=== PATIENT | female | born 1960 | race Hispanic/Latino ===

== ENCOUNTER 2017-08-22 17:45 | Emergency (ER) | payer SELFPAY ==
[2017-08-22 17:58] VITALS: BMI 17.9
[2017-08-22 18:04] VITALS: BP 132/72; PULSE 76; RESP 18; TEMP 97.5; O2SAT 98
== END 2017-08-22 17:58 | disposition left against medical advice (07) ==
LOC: C.ER 17:45
DX: Z02.89 Encounter for other administrative examinations (principal); F19.10 Other psychoactive substance abuse, uncomplicated

== ENCOUNTER 2017-10-17 22:27 | Emergency (ER) | payer MEDICAID ==
[2017-10-17 22:27] VITALS: BMI 17.9
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
[2017-10-18] MEDS ORDERED: Sodium Chloride 0.9% 1,000 ML IV ONE (01:08)
--- NOTE | 2017-10-18 02:52 | CT ---
EXAM: CT Head Without Intravenous Contrast EXAM DATE/TIME: 10/17/2017 11:43 PM CLINICAL HISTORY: 57 years old, female; Pain; Headache; Patient HX: 8-27-16; Additional info: Trauma TECHNIQUE: Axial computed tomography images of the head/brain without intravenous contrast. All CT scans at this facility use one or more dose reduction techniques, viz.: automated exposure control; ma/kV adjustment per patient size (including targeted exams where dose is matched to indication; i.e. head); or iterative reconstruction technique. Coronal and sagittal reformatted images were created and reviewed. COMPARISON: Prior head CT of 2016-04-23 FINDINGS: BRAIN: Focal areas of low density in the basal ganglia bilaterally, most compatible with bilateral old/chronic lacunar infarcts. Moderate, diffuse cortical atrophy and ventriculomegaly, which appear somewhat advanced for age. Recommend clinical correlation. No significant acute abnormality identified. No acute hemorrhage seen within the brain. No acute extra-axial fluid collections visualized. No evidence of significant mass effect within the brain. VENTRICLES: See above. BONES/JOINTS: Bilateral nasal bone fractures, which are most likely chronic. There is no associated soft tissue swelling. Remaining visualized bony structures appear intact. No evidence of skull fractures. SOFT TISSUES: Marked soft tissue swelling in the right posterior scalp. Small focus of air in the right posterior scalp, most likely due to a scalp laceration. Multiple radiodensities seen at the skin surface in this area, suspicious for multiple superficially-located scalp foreign bodies. SINUSES: Visualized paranasal sinuses appear clear. MASTOID AIR CELLS: Mastoid air cells appear clear. IMPRESSION: - No evidence of acute intracranial injury. - Marked soft tissue swelling in the right posterior scalp, with suspected multiple superficial foreign bodies in the scalp. - Bilateral nasal bone fractures, which are most likely chronic. Recommend clinical correlation. - See above for remaining findings.
--- NOTE | 2017-10-18 03:01 | CT ---
EXAM: CT Cervical Spine Without Intravenous Contrast EXAM DATE/TIME: 10/17/2017 11:45 PM CLINICAL HISTORY: 57 years old, female; Pain; Neck pain; Additional info: Trauma TECHNIQUE: Axial computed tomography images of the cervical spine without intravenous contrast. All CT scans at this facility use one or more dose reduction techniques, viz.: automated exposure control; ma/kV adjustment per patient size (including targeted exams where dose is matched to indication; i.e. head); or iterative reconstruction technique. Coronal and sagittal reformatted images were created and reviewed. COMPARISON: No relevant prior studies available. FINDINGS: VERTEBRAE: Multilevel facet joint degenerative changes, marked in degree on the right. No acute cervical spine fractures visualized. No significant vertebral subluxation seen on the sagittal reformatted images. No evidence of acute facet dislocation. DISCS/SPINAL CANAL/NEURAL FORAMINA: Marked, multilevel degenerative disc disease. SOFT TISSUES: No acute abnormality of the visualized soft tissues is seen. TRACHEA: Small, rounded focus of air seen in the right superior mediastinum, abutting the trachea, most likely representing a right paratracheal air cyst, an incidental finding. LUNG APICES: Mild emphysematous changes. IMPRESSION: - No acute cervical spine fractures identified. - See above for remaining findings.
[2017-10-18 04:46] VITALS: RESP 18
[2017-10-18] MEDS ORDERED: Lidocaine 1% Inj (20ml) ONE (05:34)
[2017-10-18] MEDS ORDERED: Bacitracin 500 Units/gm Oint Foilpak UD TOP ONE (06:09)
[2017-10-18] MEDS ORDERED: Bacitracin 500 Units/gm Oint Foilpak UD ONE (06:14)
[2017-10-18 06:36] VITALS: BP 98/56; PULSE 102; TEMP 98.2; O2SAT 98
== END 2017-10-18 06:54 | disposition home or self-care (01) ==
LOC: C.ER 22:27
DX: S01.01XA Laceration without foreign body of scalp, initial encounter (principal); Y08.89XA Assault by other specified means, initial encounter; Y92.89 Other specified places as the place of occurrence of the external cause; F10.10 Alcohol abuse, uncomplicated; Y90.9 Presence of alcohol in blood, level not specified
CPT/HCPCS: 12032; 70450; 72125; 96360; 99285; J7040

== ENCOUNTER 2018-02-20 05:09 | Emergency (ER) | payer MEDICAID ==
[2018-02-20 05:09] VITALS: BMI 17.9
[2018-02-20 05:31] VITALS: TEMP 97.5
--- NOTE | 2018-02-20 05:40 | C.PDOC ---
History Of Present Illness patient presents with 3-4 days of chest discomfort. Still drinks and smokes daily. Speaking in complete sentences. Last drink earlier today. Time Seen by Provider: 02/20/18 05:40 Chief Complaint (Nursing): Chest Pain History Per: Patient History/Exam Limitations: no limitations Onset/Duration Of Symptoms: Days Current Symptoms Are (Timing): Still Present Context: Other Severity: Moderate Pain Scale Rating Of: 4 Quality: Dull, Aching Associated Symptoms: denies: Nausea, Dyspnea Modifying Factors: None Exacerbating Factors: None Alleviating Factors: None Recent travel outside of the [place]: No Additional History Per: Patient Past Medical History Reviewed: Historical Data, Nursing Documentation, Vital Signs Vital Signs: Last Vital Signs Temp 97.5 F L 02/20/18 05:19 Pulse 54 L 02/20/18 06:00 Resp 12 02/20/18 06:00 BP 124/84 02/20/18 06:00 Pulse Ox 95 02/20/18 06:00 - Medical History PMH: Asthma, COPD, Diabetes, HTN, Hypercholesterolemia Denies: Chronic Kidney Disease - [facility] Procedures TETANUS TOXOID ADMINIST (09/09/13) Family History: States: No Known Family Hx - Social History Hx Tobacco Use: Yes Hx Alcohol Use: Yes Hx Substance Use: No - Immunization History Hx Tetanus Toxoid Vaccination: No Hx Influenza Vaccination: No Hx Pneumococcal Vaccination: No Review Of Systems Constitutional: Negative for: Fever, Chills ENT: Negative for: Throat Pain Cardiovascular: Positive for: Chest Pain Respiratory: Negative for: Shortness of Breath Gastrointestinal: Negative for: Nausea, Vomiting, Abdominal Pain Genitourinary: Negative for: Dysuria Musculoskeletal: Negative for: Back Pain Skin: Negative for: Rash Neurological: Negative for: Weakness Psych: Negative for: Anxiety Physical Exam - Physical Exam Appears: Non-toxic Skin: Warm, Dry Head: Normacephalic Eye(s): bilateral: Normal Inspection Oral Mucosa: Moist Neck: Supple Chest: Symmetrical Cardiovascular: Rhythm Regular Respiratory: No Rales, No Rhonchi, No Wheezing Gastrointestinal/Abdominal: Soft, No Tenderness, No Distention Back: Normal Inspection Extremity: Normal ROM Extremity: Bilateral: Atraumatic Neurological/Psych: Oriented x3 Gait: Steady ED Course And Treatment - Laboratory Results Result Diagrams: 02/20/18 06:02 02/20/18 06:02 ECG: Interpreted By Me, Viewed By Me ECG Rhythm: Sinus Rhythm (71), Nonspecific Changes O2 Sat by Pulse Oximetry: 96 Pulse Ox Interpretation: Normal - Radiology CXR: Interpreted by Me, Viewed By Me CXR Interpretation: Yes: COPD. No: Infiltrates, Fracture, Pnemothorax Disposition Counseled Patient/Family Regarding: Studies Performed, Diagnosis - Disposition Disposition Time: 05:40 Condition: FAIR Forms: [employer] (Latvian) - Clinical Impression Clinical Impression: Chest pain Physician Patient Turnover Patient Signed Over To: Joseph Parish Handoff Comments: pending labs and admission
[2018-02-20] MEDS ORDERED: Aspirin 325 mg EC Tablets PO STA (05:42)
[2018-02-20 06:06] LABS: BASO % 0.6 % (0.0-2.0); EOS % 0.9 % (0.0-4.0); LYMPH # 1.4 K/uL (1.0-4.3); LYMPH % 48.9 % (20.0-40.0); MEAN CELL VOLUME 96.2 fL (81.0-99.0); MEAN CORPUSCULAR HEMOGLOBIN 32.3 pg (27.0-31.0); MEAN CORPUSCULAR HGB CONC 33.5 g/dL (33.0-37.0); MEAN PLATELET VOLUME 8.7 fL (7.2-11.7); MONO # 0.4 K/uL (0.0-0.8); NEUT % 36.6 % (50.0-75.0); NRBC % 0.2 % (0.0-2.0); RBC 3.72 Mil/uL (3.80-5.20); RED CELL DISTRIBUTION WIDTH 16.7 % (11.5-14.5); WHITE BLOOD COUNT 2.8 K/uL (4.8-10.8)
[2018-02-20 06:13] LABS: INR 1.3
[2018-02-20 06:20] LABS: ALB/GLOB RATIO 1.1 (1.0-2.1); ALBUMIN 3.9 g/dL (3.5-5.0); ALT/SGPT 35 U/L (9-52); AST/SGOT 94 U/L (14-36); BLOOD UREA NITROGEN 8 mg/dL (7-17); GFR AFRICAN-AMERICAN > 60; GFR NON-AFRICAN AMERICAN > 60; LIPASE 79 U/L (23-300)
[2018-02-20 06:27] LABS: B-TYPE NATRIURETIC PEPTIDE 54.8 pg/mL (0-900)
[2018-02-20 07:21] VITALS: BP 107/67; RESP 16; O2SAT 93
[2018-02-20] MEDS ORDERED: Potassium Chloride 20 mEq ER Tab PO STA (09:32)
[2018-02-20] MEDS ORDERED: Azithromycin 500 MG in Sodium Chloride 0.9% 250 ML IVPB SCH (10:00)
--- NOTE | 2018-02-20 10:50 | RAD ---
PROCEDURE: CHEST RADIOGRAPH, 1 VIEW HISTORY: chest pain COMPARISON: 08/03/2016 FINDINGS: LUNGS: Clear. PLEURA: No pneumothorax or pleural fluid seen. CARDIOVASCULAR: No radiographic findings to suggest acute or significant cardiovascular disease. OSSEOUS STRUCTURES: No significant abnormalities. Old healed posterior lateral left 8th rib fracture. VISUALIZED UPPER ABDOMEN: Normal. OTHER FINDINGS: None. IMPRESSION: No active disease. No acute/significant interval changes. No significant interval change compared to the prior examination(s). Concordant results with the preliminary interpretation rendered by the emergency department physician procedure.
[2018-02-20] MEDS ORDERED: Albuterol-Ipratrop 3 mg / 0.5 (3 ml) UD INH SCH (14:00)
[2018-02-20 17:01] VITALS: PULSE 58
[2018-02-20] MEDS ORDERED: Fluticasone-Salmeterol 250-50mcg Diskus INH SCH (20:00)
--- NOTE | 2018-02-21 22:28 | CARD ---
APPROVED REPORT EKG Measurement Heart [id number] <Conclusion> Normal sinus rhythm Low voltage QRS Possible Anterolateral infarct, age undetermined Abnormal ECG
== END 2018-02-20 11:07 | disposition left against medical advice (07) ==
LOC: C.ER 05:09 → UNDOADMIN 07:12 → C.9E 07:12 → C.6T 10:27 → UNDODISIN 11:06
DX: R07.9 Chest pain, unspecified (principal); I10 Essential (primary) hypertension; E78.00 Pure hypercholesterolemia, unspecified; J44.9 Chronic obstructive pulmonary disease, unspecified

== ENCOUNTER 2018-03-09 21:41 | Observation (INO) | payer MEDICAID ==
[2018-03-09 21:42] VITALS: BMI 17.9
[2018-03-09] MEDS ORDERED: Sodium Chloride 0.9% 500 ML IV ONE (21:51)
[2018-03-09] MEDS ORDERED: Tetanus/Diphtheria Toxoids 0.5 ml Syringe IM ONE (21:52)
[2018-03-09] MEDS ORDERED: Albuterol 0.083% Inhal Sol (2.5 mg/3 mL) UD IH STA (22:07)
[2018-03-09] MEDS ORDERED: Albuterol 0.083% Inhal Sol (2.5 mg/3 mL) UD ONE (22:14)
[2018-03-09 22:22] LABS: BASO % 0.5 % (0.0-2.0); EOS % 0.7 % (0.0-4.0); HEMOGLOBIN 11.8 g/dL (11.0-16.0); INR 1.3; LYMPH # 2.9 K/uL (1.0-4.3); LYMPH % 64.7 % (20.0-40.0); MEAN CELL VOLUME 95.9 fL (81.0-99.0); MEAN CORPUSCULAR HEMOGLOBIN 32.6 pg (27.0-31.0); MEAN PLATELET VOLUME 8.6 fL (7.2-11.7); MONO # 0.3 K/uL (0.0-0.8); MONO % 6.7 % (0.0-10.0); NEUT # 1.2 K/uL (1.8-7.0); NEUT % 27.4 % (50.0-75.0); PROTHROMBIN TIME 14.1 SECONDS (9.7-12.2); RBC 3.64 Mil/uL (3.80-5.20); RED CELL DISTRIBUTION WIDTH 15.6 % (11.5-14.5)
[2018-03-09 22:28] LABS: SQUAMOUS EPITHIAL < 1 /hpf (0-5); URINE BILIRUBIN NEGATIVE (NEGATIVE); URINE BLOOD NEGATIVE (NEGATIVE); URINE CLARITY Clear (Clear); URINE COLOR Yellow (YELLOW); URINE GLUCOSE (UA) NORMAL (Normal); URINE LEUKOCYTE ESTERASE TRACE Leu/uL (Negative); URINE PROTEIN NEGATIVE (NEGATIVE); URINE UROBILINOGEN NORMAL mg/dL (0.2-1.0)
[2018-03-09 22:30] LABS: WHITE BLOOD COUNT 4.5 K/uL (4.8-10.8)
--- NOTE | 2018-03-09 22:30 | C.PDOC ---
History Of Present Illness 57 year old female presents to the ER after having a syncopal episode 3 hours [employer] TECH[employer]. Patient states she hit her head on the floor and complains of a right sided headache and left hand pain. Patient has a Hx of ETOH abuse and admits to drinking beer and vodka prior to syncopizing. Patient also has a Hx of asthma and liver cirrhosis. She now reports having mild left sided chest pain and SOB. Patient denies nausea, vomiting, fever, chills, palpitations, neck pain, dysuria/hematuria. Time Seen by Provider: 03/09/18 21:42 Chief Complaint (Nursing): Syncope History Per: Patient History/Exam Limitations: no limitations Onset/Duration Of Symptoms: Hrs Current Symptoms Are (Timing): Still Present Number Of Syncopal Episodes: 1 Activity At Onset Of Symptoms: Standing Associated Symptoms Preceding Syncopal Episode: No Predromal Symptoms (Sudden Onset) Seizure Or Post-ictal Symptoms: None Possible Causative Factor(s): Recent Alcohol Fall Associated With With Symptoms: Yes, Positive Injury Severity: Moderate Recent travel outside of the [place]: No - Symptoms Of CVA Associated Symptoms: denies: Impaired Speech, Seizure Activity, New Vision Deficit(Left), New Vision Deficit(Right), Decreased Ability To Walk, New Confusion Past Medical History Reviewed: Historical Data, Nursing Documentation, Vital Signs Vital Signs: Last Vital Signs Temp 99.2 F 03/10/18 23:10 Pulse 80 03/10/18 23:10 Resp 20 03/10/18 23:10 BP 113/71 03/10/18 23:10 Pulse Ox 94 L 03/11/18 03:55 - Medical History PMH: Asthma, COPD, Diabetes, HTN, Hypercholesterolemia - [facility] Procedures TETANUS TOXOID ADMINIST (09/09/13) Family History: States: Unknown Family Hx - Social History Hx Tobacco Use: Yes Hx Alcohol Use: Yes Hx Substance Use: No - Immunization History Hx Tetanus Toxoid Vaccination: No Hx Influenza Vaccination: No Hx Pneumococcal Vaccination: No Review Of Systems Constitutional: Negative for: Fever, Chills Cardiovascular: Positive for: Chest Pain. Negative for: Palpitations Respiratory: Positive for: Shortness of Breath. Negative for: Cough Gastrointestinal: Negative for: Nausea, Vomiting, Abdominal Pain, Diarrhea Musculoskeletal: Positive for: Hand Pain Neurological: Positive for: Headache, Other (Syncope). Negative for: Weakness, Numbness, Incoordination, Altered Mental Status Psych: Positive for: Other (alcohol abuse ) Physical Exam - Physical Exam Appears: Well, Non-toxic Skin: Warm, Dry Head: Normacephalic, Other (Contusion with small abrasions above right eyebrow) Eye(s): bilateral: Normal Inspection ((-) [place] eyes ), PERRL, EOMI Ear(s): Bilateral: Normal ((-) Scott sign ) Nose: Normal, No Deformity, No Tenderness Oral Mucosa: Moist Tongue: Normal Appearing, No Laceration Lips: Normal Appearing, No Laceration Teeth: Other (poor dentition, no fractures ) Neck: Normal, No Midline Cervical Tenderness, No Paracervical Tenderness, No Step Off Deformity, Supple Chest: Symmetrical, No Tenderness Cardiovascular: Rhythm Regular Respiratory: No Accessory Muscle Use, No Rales, No Rhonchi, Wheezing ( expiratory bilaterally) Gastrointestinal/Abdominal: Normal Exam, Bowel Sounds, Soft, No Tenderness Back: Normal Inspection, No CVA Tenderness, No Vertebral Tenderness, No Paraspinal Tenderness Extremity: Normal ROM (x4), No Pedal Edema, No Calf Tenderness, Capillary Refill (< 2 sec all digits ), No Deformity, Other (Ecchymosis over left 4th and 5th MCP joints. Scattered abrasions to bilateral arms and legs) Extremity: Bilateral: Atraumatic, Normal Color And Temperature, Normal ROM Pulses: Left Radial: Normal, Right Radial: Normal Neurological/Psych: Oriented x3, Normal Speech, Normal Cognition, Normal Cranial Nerves, No Cerebellar Signs, Normal Motor, Normal Sensation Gait: Steady ED Course And Treatment - Laboratory Results Result Diagrams: 03/09/18 22:11 03/09/18 22:11 ECG: Interpreted By Me, Viewed By Me ECG Rhythm: Sinus Rhythm ECG Interpretation: Normal Interpretation Of ECG: Normal axis, no acute ST/T wave changes Rate From EC (bpm ) O2 Sat by Pulse Oximetry: 95 (Room air) Pulse Ox Interpretation: Normal - Other Rad left hand Xrays X-Ray: Interpreted by Me, Viewed By Me (no fx/dislocation) - CT Scan/US CT HEAD Other Rad Studies (CT/US): Read By Radiologist, Radiology Report Reviewed CT/US Interpretation: EXAM: CT Head Without Intravenous Contrast. CLINICAL HISTORY: 57 years, female; Injury or trauma; Fall; Initial encounter; Concussion / head injury; Additional info: Head injury R/O bleed. TECHNIQUE: Axial computed tomography images of the head/brain without intravenous contrast. All CT scans at. this facility use at least one of these dose optimization techniques: automated exposure control; mA. and/or kV adjustment per patient size (includes targeted exams where dose is matched to clinical. indication); or iterative reconstruction. Coronal and sagittal reformatted images were created and reviewed. COMPARISON: No relevant prior studies available. FINDINGS: Brain: Age-related atrophy and chronic small vessel ischemic disease. Bilateral chronic lacunar. infarcts in the basal ganglia. No hemorrhage. Ventricles: Unremarkable. No ventriculomegaly. Bones/joints: Chronic bilateral nasal bone fractures. No acute fracture. Soft tissues: Large right frontal/right periorbital scalp hematoma. Sinuses: Mild scattered mucosal thickening paranasal sinuses. Mastoid air cells: Trace fluid mastoid tips bilaterally. IMPRESSION: 1. No acute intracranial findings. 2. Large right frontal/right periorbital scalp hematoma. 3. Age-related atrophy and chronic small vessel ischemic disease. 4. Additional chronic/incidental findings as described above. Thank you for allowing us to participate in the care of your patient. Dictated and Authenticated by: Jacque Harkins MD Progress Note: Blood work, CT head, EKG, left hand x-ray, and urinalysis ordered and reviewed. Patient given tetanus vaccination IM, IV NS bolus, PO Prednisone, PO tylenol and albuterol neb treatments. - Physician Consult Information Physician Contacted: Mannie Sage Outcome Of Conversation: Discussed patient with PMD, agrees with admission for syncope, closed head injury, alcohol dependence, asthma exacerbation. Disposition - Disposition Disposition: HOSPITALIZED Disposition Time: 00:18 Condition: STABLE - Clinical Impression Clinical Impression: Closed head injury, Asthma exacerbation, Alcohol dependence, Syncope - Scribe Statement The provider has reviewed the documentation as recorded by the Scribe Parrish Beatty All medical record entries made by the Scribe were at my direction and personally dictated by me. I have reviewed the chart and agree that the record accurately reflects my personal performance of the history, physical exam, medical decision making, and the department course for this patient. I have also personally directed, reviewed, and agree with the discharge instructions and disposition. Decision To Admit - Pt Status Changed To: Hospital Disposition Of: Observation - . Bed Request Type: Telemetry Admitting Physician: Mannie Sage Patient Diagnosis: Syncope, Closed head injury, Alcohol dependence, Asthma exacerbation
[2018-03-09 22:36] LABS: ALB/GLOB RATIO 1.5 (1.0-2.1); ALBUMIN 4.2 g/dL (3.5-5.0); ALT/SGPT 43 U/L (9-52); AST/SGOT 135 U/L (14-36); BLOOD UREA NITROGEN 9 mg/dL (7-17); CALCIUM 9.1 mg/dl (8.6-10.4); GFR AFRICAN-AMERICAN > 60; GFR NON-AFRICAN AMERICAN > 60
[2018-03-09 22:39] LABS: CK-MB 1.59 ng/mL (0.0-3.38)
[2018-03-09 22:52] LABS: BARBITURATES, UR NEGATIVE (NEGATIVE); BENZODIAZEPINES, UR NEGATIVE (NEGATIVE); OPIATES, UR NEGATIVE (NEGATIVE); PHENCYCLIDINE, UR NEGATIVE (NEGATIVE)
--- NOTE | 2018-03-10 07:33 | CT ---
Date of service: 03/09/2018 PROCEDURE: CT HEAD WITHOUT CONTRAST. HISTORY: head injury r/o bleed COMPARISON: None available. TECHNIQUE: Axial computed tomography images were obtained through the head/brain without intravenous contrast. Radiation dose: Total exam DLP = 753 mGy-cm. This CT exam was performed using one or more of the following dose reduction techniques: Automated exposure control, adjustment of the mA and/or kV according to patient size, and/or use of iterative reconstruction technique. FINDINGS: HEMORRHAGE: No intracranial hemorrhage. BRAIN: Age related atrophy and chronic small vessel ischemic disease. Bilateral chronic lacunar infarcts in the basal ganglia. VENTRICLES: Unremarkable. No hydrocephalus. CALVARIUM: Chronic bilateral nasal bone fractures. PARANASAL SINUSES: Mild scattered mucosal thickening of the paranasal sinuses. MASTOID AIR CELLS: Trace fluid in the mastoid tips bilaterally. OTHER FINDINGS: Large right frontal/ right periorbital scalp hematoma. IMPRESSION: Large right frontal/ right periorbital scalp hematoma. Bowing of the right zygomatic arch, which may represent age-indeterminate deformity. Clinical correlation. Age-indeterminate deformity of the bilateral nasal bones; right greater than left. Clinical correlation. Age related atrophy and chronic small vessel ischemic disease. Additional findings as above. If symptoms persists, consider correlation with MRI. These findings were preliminarily reported at 11:06 p.m. on 03/09/[address] Jacque Harkins from [facility].
[2018-03-10 08:21] VITALS: RESP 20
--- NOTE | 2018-03-10 15:04 | CP.PCM.HP ---
Past Patient History - Infectious Disease Hx of Infectious Diseases: None - Past Medical History & Family History Past Medical History?: Yes - Past Social History Smoking Status: Heavy Smoker > 10 Cigarettes Daily - CARDIAC Hx Hypercholesterolemia: Yes Hx Hypertension: Yes - PULMONARY Hx Asthma: Yes Hx Chronic Obstructive Pulmonary Disease (COPD): Yes - NEUROLOGICAL Hx Neurological Disorder: No - HEENT Hx HEENT Problems: No - RENAL Hx Chronic Kidney Disease: No - ENDOCRINE/METABOLIC Hx Endocrine Disorders: Yes Hx Diabetes Mellitus Type 1: Yes - HEMATOLOGICAL/ONCOLOGICAL Hx Blood Disorders: Yes Hx Cirrhosis: Yes - INTEGUMENTARY Hx Dermatological Problems: No - MUSCULOSKELETAL/RHEUMATOLOGICAL Hx Musculoskeletal Disorders: No Hx Falls: No - GASTROINTESTINAL Hx Gastrointestinal Disorders: Yes - GENITOURINARY/GYNECOLOGICAL Hx Genitourinary Disorders: No - PSYCHIATRIC Hx Substance Use: No - SURGICAL HISTORY Hx Surgeries: Yes Hx Section: Yes (x3) Hx Orthopedic Surgery: Yes (right leg with metal) - ANESTHESIA Hx Anesthesia: Yes Hx Anesthesia Reactions: No Meds Allergies/Adverse Reactions: Allergies Allergy/AdvReac Type Severity Reaction Status Date / Time FISH Allergy skin rash Verified 03/09/18 21:46 Physical Exam - Constitutional Appears: Well - Head Exam Head Exam: ATRAUMATIC, NORMAL INSPECTION, NORMOCEPHALIC - Eye Exam Eye Exam: EOMI, Normal appearance, PERRL Pupil Exam: NORMAL ACCOMODATION, PERRL - ENT Exam ENT Exam: Mucous Membranes Moist, Normal Exam - Neck Exam Neck exam: Positive for: Normal Inspection - Respiratory Exam Respiratory Exam: Decreased Breath Sounds - Cardiovascular Exam Cardiovascular Exam: REGULAR RHYTHM, +S1, +S2 - GI/Abdominal Exam GI & Abdominal Exam: Diminished Bowel Sounds, Soft - Rectal Exam Rectal Exam: Deferred Results - Vital Signs Recent Vital Signs: Last Vital Signs Temp 98.3 F 03/10/18 07:00 Pulse 63 03/10/18 07:00 Resp 20 03/10/18 07:00 BP 130/75 03/10/18 07:00 Pulse Ox 96 03/10/18 07:00 - Labs Result Diagrams: 03/09/18 22:11 03/09/18 22:11 Labs: Laboratory Results - last 24 hr 03/09/18 03/09/18 03/09/18 22:11 22:11 22:11 WBC 4.5 L D RBC 3.64 L Hgb 11.8 Hct 34.9 MCV 95.9 MCH 32.6 H MCHC 34.0 RDW 15.6 H Plt Count 73 L MPV 8.6 Neut % (Auto) 27.4 L Lymph % (Auto) 64.7 H [place] % (Auto) 6.7 Eos % (Auto) 0.7 Baso % (Auto) 0.5 Neut # (Auto) 1.2 L Lymph # (Auto) 2.9 [place] # (Auto) 0.3 Eos # (Auto) 0.0 Baso # (Auto) 0.0 PT 14.1 H INR 1.3 APTT 33 Sodium 145 Potassium 3.8 Chloride 106 Carbon Dioxide 25 Anion Gap 18 BUN 9 Creatinine 0.6 L Est GFR ( Amer) > 60 Est GFR (Non-Af Amer) > 60 POC Glucose (mg/dL) Random Glucose 99 Calcium 9.1 Total Bilirubin 1.4 H AST 135 H D ALT 43 Alkaline Phosphatase 135 H Total Creatine Kinase 187 H CK-MB (Mass) 1.59 Troponin I < 0.0120 Total Protein 7.1 Albumin 4.2 Globulin 2.9 Albumin/Globulin Ratio 1.5 Urine Color Urine Clarity Urine pH Ur Specific [place] Urine Protein Urine Glucose (UA) Urine Ketones Urine Blood Urine Nitrate Urine Bilirubin Urine Urobilinogen Ur Leukocyte Esterase Urine WBC (Auto) Ur Squamous Epith Cells Urine Opiates Screen Urine Methadone Screen Ur Barbiturates Screen Ur Phencyclidine Scrn Ur Amphetamines Screen U Benzodiazepines Scrn U Oth Cocaine Metabols U Cannabinoids Screen Alcohol, Quantitative 420 H 03/09/18 03/09/18 03/09/18 22:22 22:22 23:09 WBC RBC Hgb Hct MCV MCH MCHC RDW Plt Count MPV Neut % (Auto) Lymph % (Auto) [place] % (Auto) Eos % (Auto) Baso % (Auto) Neut # (Auto) Lymph # (Auto) [place] # (Auto) Eos # (Auto) Baso # (Auto) PT INR APTT Sodium Potassium Chloride Carbon Dioxide Anion Gap BUN Creatinine Est GFR ( Amer) Est GFR (Non-Af Amer) POC Glucose (mg/dL) 101 Random Glucose Calcium Total Bilirubin AST ALT Alkaline Phosphatase Total Creatine Kinase CK-MB (Mass) Troponin I Total Protein Albumin Globulin Albumin/Globulin Ratio Urine Color Yellow Urine Clarity Clear Urine pH 5.0 Ur Specific [place] 1.003 Urine Protein Negative Urine Glucose (UA) Normal Urine Ketones Negative Urine Blood Negative Urine Nitrate Negative Urine Bilirubin Negative Urine Urobilinogen Normal Ur Leukocyte Esterase Trace Urine WBC (Auto) < 1 Ur Squamous Epith Cells < 1 Urine Opiates Screen Negative Urine Methadone Screen Negative Ur Barbiturates Screen Negative Ur Phencyclidine Scrn Negative Ur Amphetamines Screen Negative U Benzodiazepines Scrn Negative U Oth Cocaine Metabols Positive H U Cannabinoids Screen Negative Alcohol, Quantitative 03/10/18 03/10/18 06:20 11:26 WBC RBC Hgb Hct MCV MCH MCHC RDW Plt Count MPV Neut % (Auto) Lymph % (Auto) [place] % (Auto) Eos % (Auto) Baso % (Auto) Neut # (Auto) Lymph # (Auto) [place] # (Auto) Eos # (Auto) Baso # (Auto) PT INR APTT Sodium Potassium Chloride Carbon Dioxide Anion Gap BUN Creatinine Est GFR ( Amer) Est GFR (Non-Af Amer) POC Glucose (mg/dL) 182 H 112 H Random Glucose Calcium Total Bilirubin AST ALT Alkaline Phosphatase Total Creatine Kinase CK-MB (Mass) Troponin I Total Protein Albumin Globulin Albumin/Globulin Ratio Urine Color Urine Clarity Urine pH Ur Specific [place] Urine Protein Urine Glucose (UA) Urine Ketones Urine Blood Urine Nitrate Urine Bilirubin Urine Urobilinogen Ur Leukocyte Esterase Urine WBC (Auto) Ur Squamous Epith Cells Urine Opiates Screen Urine Methadone Screen Ur Barbiturates Screen Ur Phencyclidine Scrn Ur Amphetamines Screen U Benzodiazepines Scrn U Oth Cocaine Metabols U Cannabinoids Screen Alcohol, Quantitative
--- NOTE | 2018-03-10 15:35 | RAD ---
Left hand four views History: Injury. Comparison: None available. Findings: Narrowing of the 2nd through 5th PIP and DIP joint spaces. More prominent degenerative changes noted at the 5th PIP and DIP joint spaces with some cortical productive change noted at the level of the volar aspect of the 5th middle phalanx particularly on the lateral view. Clinical correlation. Narrowing of the 1st carpometacarpal joint space. Rounded radiopaque density adjacent to the 4th metatarsal shaft on the frontal view, nonspecific. Clinical correlation. Negative ulnar variance. Impression: 1. Prominent degenerative changes noted at the 5th PIP and DIP joint spaces with some cortical productive change noted at the level of the volar aspect of the 5th middle phalanx particularly on the lateral view. Clinical correlation. If pain persists, repeat x-ray in a 4-7 day interval and or correlation with MRI may be helpful if clinically indicated. 2. Narrowing of the 2nd through 5th PIP and DIP joint spaces. 3. Narrowing of the 1st carpometacarpal joint space. 4. Rounded radiopaque density adjacent to the 4th metatarsal shaft on the frontal view, nonspecific. Clinical correlation. 5. Negative ulnar variance.
[2018-03-10] MEDS ORDERED: Dextrose 50% SYRINGE Inj (50 ml) IV PRN (15:45)
[2018-03-10] MEDS ORDERED: Glucagon Recombinant 1 mg Inj IM PRN (15:45)
[2018-03-10] MEDS ORDERED: MULTIVITAMIN IV SCH ×2 (16:30→19:00)
[2018-03-10] MEDS ORDERED: THIAMINE IV SCH ×2 (16:30→19:00)
[2018-03-10] MEDS ORDERED: FOLIC ACID IV SCH ×2 (16:30→19:00)
[2018-03-10] MEDS ORDERED: [UNRECOGNIZED DRUG - OTHER] IV SCH ×2 (16:30→19:00)
[2018-03-10] MEDS: (Novolog) Insulin Aspart, Recombinant 100 u/ml 10 ml vial SC SCH ×2 (16:38→21:40)
--- NOTE | 2018-03-10 16:55 | CP.PCM.CON ---
History of Present Illness - History of Present Illness History of Present Illness: CHART REVIEWED. PT SEEN AND EXAMINED. 57 YO W FEMALE WITH A HX COPD, SZ, ETOH ABUSE, ADM 03/10/2018 S/P SYNCOPE. PT DROWSY, NO FURTHER HX AVAILABLE. Review of Systems - Review of Systems Systems not reviewed;Unavailable: Intoxicated All systems: reviewed and no additional remarkable complaints except Past Patient History - Infectious Disease Hx of Infectious Diseases: None - Past Medical History & Family History Past Medical History?: Yes - Past Social History Smoking Status: Heavy Smoker > 10 Cigarettes Daily Alcohol: > 2 Drinks/Day - CARDIAC Hx Hypercholesterolemia: Yes Hx Hypertension: Yes - PULMONARY Hx Asthma: Yes Hx Chronic Obstructive Pulmonary Disease (COPD): Yes - NEUROLOGICAL Hx Neurological Disorder: No Hx Seizures: Yes - HEENT Hx HEENT Problems: No - RENAL Hx Chronic Kidney Disease: No - ENDOCRINE/METABOLIC Hx Endocrine Disorders: Yes Hx Diabetes Mellitus Type 1: Yes - HEMATOLOGICAL/ONCOLOGICAL Hx Blood Disorders: Yes Hx Cirrhosis: Yes - INTEGUMENTARY Hx Dermatological Problems: No - MUSCULOSKELETAL/RHEUMATOLOGICAL Hx Musculoskeletal Disorders: No Hx Falls: No - GASTROINTESTINAL Hx Gastrointestinal Disorders: Yes - GENITOURINARY/GYNECOLOGICAL Hx Genitourinary Disorders: No - PSYCHIATRIC Hx Psychophysiologic Disorder: Yes Hx Substance Use: Yes (ETOH) - SURGICAL HISTORY Hx Surgeries: Yes Hx Section: Yes (x3) Hx Orthopedic Surgery: Yes (right leg with metal) - ANESTHESIA Hx Anesthesia: Yes Hx Anesthesia Reactions: No Meds Allergies/Adverse Reactions: Allergies Allergy/AdvReac Type Severity Reaction Status Date / Time FISH Allergy skin rash Verified 03/09/18 21:46 - Medications Medications: Current Medications Albuterol/Ipratropium (Duoneb 3 Mg/0.5 Mg (3 Ml) Ud) 3 ml INH RQ6 LIANG Chlordiazepoxide (Librium) 25 mg PO Q8 PRN PRN Reason: Anxiety Stop: 03/11/18 15:46 Dextrose (Dextrose 50% Inj) 0 ml IV STAT PRN; Protocol PRN Reason: Hypoglycemia Protocol Dextrose (Glutose 15) 0 gm PO ONCE PRN; Protocol PRN Reason: Hypoglycemia Protocol Glucagon (Glucagen Diagnostic Kit) 0 mg IM STAT PRN; Protocol PRN Reason: Hypoglycemia Protocol Multivitamins/Vitamin C 10 ml/Folic Acid 1 mg/ Thiamine HCl 1 mg/ Dextrose/ Sodium Chloride 1,010.21 mls @ 100 mls/hr IV .Q10H7M LIANG Stop: 03/11/18 02:36 Azithromycin 500 mg/ Sodium (Chloride) 250 mls @ 250 mls/hr IVPB DAILY LIANG PRN Reason: Protocol Dextrose (Dextrose 5% In Water 1000 Ml) 1,000 mls @ 0 mls/hr IV .Q0M PRN; Protocol; Per Protocol PRN Reason: Hypoglycemia Protocol Insulin Aspart (Novolog) 0 unit SC ACHS LIANG PRN Reason: Protocol Last Admin: 03/10/18 16:38 Dose: Not Given Lorazepam (Ativan) 1 mg IVP Q6H PRN PRN Reason: Anxiety Last Admin: 03/10/18 15:40 Dose: 1 mg Pneumococcal Polyvalent Vaccine (Pneumovax 23 Vaccine) 0.5 ml IM .ONCE ONE Stop: 03/12/18 10:01 Physical Exam - Constitutional Appears: Older Than Stated Age, Confused, Chronically Ill - Head Exam Additional comments: RIGHT PERIORBITAL ECCHYMOSIS/ EDEMA - Eye Exam Eye Exam: absent: Scleral icterus - ENT Exam ENT Exam: Mucous Membranes Dry - Neck Exam Neck exam: Negative for: Tenderness - Respiratory Exam Respiratory Exam: Decreased Breath Sounds. absent: Accessory Muscle Use, Respiratory Distress - Cardiovascular Exam Cardiovascular Exam: RRR, +S1, +S2 - GI/Abdominal Exam GI & Abdominal Exam: Soft. absent: Tenderness - Rectal Exam Rectal Exam: Deferred - Extremities Exam Extremities exam: Negative for: calf tenderness, pedal edema - Back Exam Back exam: absent: CVA tenderness (L), CVA tenderness (R) - Neurological Exam Neurological exam: CN II-XII Intact Additional comments: NONFOCAL. MORE AWAKE. Results - Vital Signs Recent Vital Signs: Last Vital Signs Temp 98.5 F 03/10/18 15:11 Pulse 71 03/10/18 15:11 Resp 20 03/10/18 15:11 BP 143/80 03/10/18 15:11 Pulse Ox 94 L 03/10/18 15:11 - Labs Result Diagrams: 03/09/18 22:11 03/09/18 22:11 Labs: Laboratory Results - last 24 hr 03/09/18 03/09/18 03/09/18 22:11 22:11 22:11 WBC 4.5 L D RBC 3.64 L Hgb 11.8 Hct 34.9 MCV 95.9 MCH 32.6 H MCHC 34.0 RDW 15.6 H Plt Count 73 L MPV 8.6 Neut % (Auto) 27.4 L Lymph % (Auto) 64.7 H [place] % (Auto) 6.7 Eos % (Auto) 0.7 Baso % (Auto) 0.5 Neut # (Auto) 1.2 L Lymph # (Auto) 2.9 [place] # (Auto) 0.3 Eos # (Auto) 0.0 Baso # (Auto) 0.0 PT 14.1 H INR 1.3 APTT 33 Sodium 145 Potassium 3.8 Chloride 106 Carbon Dioxide 25 Anion Gap 18 BUN 9 Creatinine 0.6 L Est GFR ( Amer) > 60 Est GFR (Non-Af Amer) > 60 POC Glucose (mg/dL) Random Glucose 99 Calcium 9.1 Total Bilirubin 1.4 H AST 135 H D ALT 43 Alkaline Phosphatase 135 H Total Creatine Kinase 187 H CK-MB (Mass) 1.59 Troponin I < 0.0120 Total Protein 7.1 Albumin 4.2 Globulin 2.9 Albumin/Globulin Ratio 1.5 Urine Color Urine Clarity Urine pH Ur Specific [place] Urine Protein Urine Glucose (UA) Urine Ketones Urine Blood Urine Nitrate Urine Bilirubin Urine Urobilinogen Ur Leukocyte Esterase Urine WBC (Auto) Ur Squamous Epith Cells Urine Opiates Screen Urine Methadone Screen Ur Barbiturates Screen Ur Phencyclidine Scrn Ur Amphetamines Screen U Benzodiazepines Scrn U Oth Cocaine Metabols U Cannabinoids Screen Alcohol, Quantitative 420 H 03/09/18 03/09/18 03/09/18 22:22 22:22 23:09 WBC RBC Hgb Hct MCV MCH MCHC RDW Plt Count MPV Neut % (Auto) Lymph % (Auto) [place] % (Auto) Eos % (Auto) Baso % (Auto) Neut # (Auto) Lymph # (Auto) [place] # (Auto) Eos # (Auto) Baso # (Auto) PT INR APTT Sodium Potassium Chloride Carbon Dioxide Anion Gap BUN Creatinine Est GFR ( Amer) Est GFR (Non-Af Amer) POC Glucose (mg/dL) 101 Random Glucose Calcium Total Bilirubin AST ALT Alkaline Phosphatase Total Creatine Kinase CK-MB (Mass) Troponin I Total Protein Albumin Globulin Albumin/Globulin Ratio Urine Color Yellow Urine Clarity Clear Urine pH 5.0 Ur Specific [place] 1.003 Urine Protein Negative Urine Glucose (UA) Normal Urine Ketones Negative Urine Blood Negative Urine Nitrate Negative Urine Bilirubin Negative Urine Urobilinogen Normal Ur Leukocyte Esterase Trace Urine WBC (Auto) < 1 Ur Squamous Epith Cells < 1 Urine Opiates Screen Negative Urine Methadone Screen Negative Ur Barbiturates Screen Negative Ur Phencyclidine Scrn Negative Ur Amphetamines Screen Negative U Benzodiazepines Scrn Negative U Oth Cocaine Metabols Positive H U Cannabinoids Screen Negative Alcohol, Quantitative 03/10/18 03/10/18 03/10/18 06:20 11:26 16:13 WBC RBC Hgb Hct MCV MCH MCHC RDW Plt Count MPV Neut % (Auto) Lymph % (Auto) [place] % (Auto) Eos % (Auto) Baso % (Auto) Neut # (Auto) Lymph # (Auto) [place] # (Auto) Eos # (Auto) Baso # (Auto) PT INR APTT Sodium Potassium Chloride Carbon Dioxide Anion Gap BUN Creatinine Est GFR ( Amer) Est GFR (Non-Af Amer) POC Glucose (mg/dL) 182 H 112 H 98 Random Glucose Calcium Total Bilirubin AST ALT Alkaline Phosphatase Total Creatine Kinase CK-MB (Mass) Troponin I Total Protein Albumin Globulin Albumin/Globulin Ratio Urine Color Urine Clarity Urine pH Ur Specific [place] Urine Protein Urine Glucose (UA) Urine Ketones Urine Blood Urine Nitrate Urine Bilirubin Urine Urobilinogen Ur Leukocyte Esterase Urine WBC (Auto) Ur Squamous Epith Cells Urine Opiates Screen Urine Methadone Screen Ur Barbiturates Screen Ur Phencyclidine Scrn Ur Amphetamines Screen U Benzodiazepines Scrn U Oth Cocaine Metabols U Cannabinoids Screen Alcohol, Quantitative Assessment & Plan (1) COPD exacerbation Status: Acute (2) Seizure Status: Acute (3) Syncope Status: Acute (4) Alcohol abuse Status: Acute (5) Alcohol intoxication Status: Acute - Assessment and Plan (Free Text) Assessment: 57 YO FEMALE WITH A HX MULT MED PROBS ADM WITH ETOH INTOX, S/P SYNCOPE , RIGHT FRONTAL HEAD TRAUMA. CT HEAD NOTED. CONT PULM TOILET, NEB BD., MONITOR O2 SAT. ASP PRECAUTIONS., IVF HYDRATION, DT PRECAUTIONS. GI/DVT PROPHYLAXIS. PROG POOR. DISCUSSED WITH STAFF.
[2018-03-11] MEDS: Albuterol-Ipratrop 3 mg / 0.5 (3 ml) UD INH SCH ×3 (01:17→13:14)
[2018-03-11] MEDS: (Novolog) Insulin Aspart, Recombinant 100 u/ml 10 ml vial SC SCH ×2 (08:15→12:13)
[2018-03-11 08:48] VITALS: BP 123/78; PULSE 60; TEMP 97.4; O2SAT 100
[2018-03-11] MEDS ORDERED: Azithromycin 500 MG in Sodium Chloride 0.9% 250 ML IVPB SCH (10:00)
[2018-03-12] MEDS ORDERED: Pneumococcal 23-Valent Vaccine IM ONE (10:00)
--- NOTE | 2018-03-12 22:58 | CARD ---
APPROVED REPORT Date of service: 03/09/2018 EKG Measurement Heart [id number] <Conclusion> Normal sinus rhythm Normal ECG
== END 2018-03-11 14:01 | disposition left against medical advice (07) ==
LOC: C.ER 21:41 → C.6T 03-10 00:18 → C.9OBSV 03-10 00:18
PROVIDERS: ADMIT Internal Medicine Nephrology; ATTEND Internal Medicine Nephrology
DX: F10.220 Alcohol dependence with intoxication, uncomplicated (principal); E78.00 Pure hypercholesterolemia, unspecified; R55 Syncope and collapse; J44.9 Chronic obstructive pulmonary disease, unspecified; K70.30 Alcoholic cirrhosis of liver without ascites; J45.901 Unspecified asthma with (acute) exacerbation; I10 Essential (primary) hypertension; F17.210 Nicotine dependence, cigarettes, uncomplicated; E11.9 Type 2 diabetes mellitus without complications; Y90.8 Blood alcohol level of 240 mg/100 ml or more; S09.90XA Unspecified injury of head, initial encounter; X58.XXXA Exposure to other specified factors, initial encounter
CPT/HCPCS: 70450; 73130; 80053; 80320; 80324; 80345; 80346; 80349; 80353; 80358; 80361; 81001; 82550; 82553; 82948; 83992; 84484; 85025; 85610; 85730; 90471; 90714; 93005; 94640; 99285; G0378; J0456; J2060; J3411; J7040; J7042; J7050

== ENCOUNTER 2018-03-15 21:52 | Emergency (ER) | payer MEDICAID ==
[2018-03-15 21:52] VITALS: BMI 17.9
[2018-03-15] MEDS ORDERED: Sodium Chloride 0.9% 1,000 ML IV ONE (22:15)
--- NOTE | 2018-03-15 22:15 | C.PDOC ---
History Of Present Illness Patient presents to the ER with a complaint of generalized body aches. Patient admits to drinking and using crack today. She reports having a syncopal episode a few days ago for which she was admitted but signed out AMA with a negative work up. Denies fever, chills, nausea, or vomiting. Time Seen by Provider: 03/15/18 22:14 Chief Complaint (Nursing): Syncope History Per: Patient History/Exam Limitations: no limitations Onset/Duration Of Symptoms: Hrs Current Symptoms Are (Timing): Still Present Suicide/Self Injury Attempted (Context): None Modifying Factor(s): Alcohol, Crack Severity: Moderate Pain Scale Rating Of: 4 Involuntary Hold By: None Recent travel outside of the [place]: No Past Medical History Reviewed: Historical Data, Nursing Documentation, Vital Signs Vital Signs: Last Vital Signs Temp 98.2 F 03/15/18 22:02 Pulse 76 03/15/18 22:02 Resp 16 03/15/18 22:02 BP 150/97 H 03/15/18 22:02 Pulse Ox 97 03/16/18 01:50 - Medical History PMH: Asthma, COPD, Diabetes, HTN, Hypercholesterolemia, Seizures Denies: Chronic Kidney Disease - [facility] Procedures TETANUS TOXOID ADMINIST (09/09/13) Family History: States: No Known Family Hx - Social History Hx Tobacco Use: Yes Hx Alcohol Use: Yes Hx Substance Use: No - Immunization History Hx Tetanus Toxoid Vaccination: No Hx Influenza Vaccination: No Hx Pneumococcal Vaccination: No Review Of Systems Constitutional: Negative for: Fever, Chills Cardiovascular: Negative for: Chest Pain, Palpitations Respiratory: Negative for: Cough, Shortness of Breath Gastrointestinal: Negative for: Nausea, Vomiting Musculoskeletal: Positive for: Other (Generalized body aches) Physical Exam - Physical Exam Appears: Non-toxic, Other (Awake, alert, eating bangladeshi food in bed) Skin: Warm, Dry Head: Normacephalic, Other (Small healing ecchymosis to right forehead with yellow/bluish hue) Oral Mucosa: Moist Chest: Symmetrical, No Tenderness Cardiovascular: Rhythm Regular Respiratory: Normal Breath Sounds, No Rales, No Rhonchi, No Wheezing Gastrointestinal/Abdominal: Soft, No Tenderness Extremity: Other (Abrasions over arms) Neurological/Psych: Oriented x3 ED Course And Treatment - Laboratory Results Result Diagrams: 03/15/18 22:33 03/15/18 22:33 ECG: Interpreted By Me, Viewed By Me ECG Rhythm: Sinus Rhythm (62), Nonspecific Changes O2 Sat by Pulse Oximetry: 97 (Room air) Pulse Ox Interpretation: Normal Progress Note: EKG, blood work, and urinalysis ordered. IV fluids administered. Reevaluation Time: 04:41 Reassessment Condition: Improved Disposition Counseled Patient/Family Regarding: Studies Performed, Diagnosis, Need For Followup - Disposition Referrals: [facility] [Outside] Disposition: HOME/ ROUTINE Disposition Time: 22:15 Condition: FAIR Instructions: Alcohol Abuse and Alcoholism (DC) Forms: [employer] (Spanish) - Clinical Impression Clinical Impression: Alcohol intoxication, Alcohol dependence - Scribe Statement The provider has reviewed the documentation as recorded by the Scribe Parrish Beatty All medical record entries made by the Scribe were at my direction and personally dictated by me. I have reviewed the chart and agree that the record accurately reflects my personal performance of the history, physical exam, medical decision making, and the department course for this patient. I have also personally directed, reviewed, and agree with the discharge instructions and disposition.
[2018-03-15 22:36] LABS: BASO % 0.7 % (0.0-2.0); EOS % 0.7 % (0.0-4.0); HEMOGLOBIN 12.2 g/dL (11.0-16.0); MEAN CELL VOLUME 96.3 fL (81.0-99.0); MEAN CORPUSCULAR HEMOGLOBIN 32.9 pg (27.0-31.0); MEAN CORPUSCULAR HGB CONC 34.2 g/dL (33.0-37.0); MEAN PLATELET VOLUME 8.4 fL (7.2-11.7); MONO # 0.6 K/uL (0.0-0.8); MONO % 11.1 % (0.0-10.0); NEUT # 1.4 K/uL (1.8-7.0); NEUT % 28.5 % (50.0-75.0); NRBC % 0.1 % (0.0-2.0); RBC 3.72 Mil/uL (3.80-5.20); RED CELL DISTRIBUTION WIDTH 15.7 % (11.5-14.5)
[2018-03-15 22:56] LABS: URINE BILIRUBIN NEGATIVE (NEGATIVE); URINE BLOOD NEGATIVE (NEGATIVE); URINE CLARITY Clear (Clear); URINE COLOR Yellow (YELLOW); URINE GLUCOSE (UA) NORMAL (Normal); URINE LEUKOCYTE ESTERASE NEG Leu/uL (Negative); URINE PROTEIN NEGATIVE (NEGATIVE); URINE UROBILINOGEN NORMAL mg/dL (0.2-1.0)
[2018-03-15 23:04] LABS: BARBITURATES, UR NEGATIVE (NEGATIVE); BENZODIAZEPINES, UR NEGATIVE (NEGATIVE); OPIATES, UR NEGATIVE (NEGATIVE); PHENCYCLIDINE, UR NEGATIVE (NEGATIVE)
[2018-03-15 23:10] LABS: ALB/GLOB RATIO 1.3 (1.0-2.1); ALBUMIN 4.5 g/dL (3.5-5.0); ALT/SGPT 53 U/L (9-52); AST/SGOT 134 U/L (14-36); BLOOD UREA NITROGEN 7 mg/dL (7-17); CALCIUM 9.7 mg/dl (8.6-10.4); GFR AFRICAN-AMERICAN > 60; GFR NON-AFRICAN AMERICAN > 60
[2018-03-16 05:53] VITALS: BP 128/78; PULSE 82; RESP 20; TEMP 98; O2SAT 95
== END 2018-03-16 05:52 | disposition home or self-care (01) ==
LOC: C.ER 21:52
DX: F10.229 Alcohol dependence with intoxication, unspecified (principal); Y90.8 Blood alcohol level of 240 mg/100 ml or more; I10 Essential (primary) hypertension; E78.00 Pure hypercholesterolemia, unspecified; E11.9 Type 2 diabetes mellitus without complications; F17.210 Nicotine dependence, cigarettes, uncomplicated